=== PATIENT | female | born 1985 | race Caucasian/White ===

== ENCOUNTER 2018-12-19 10:45 | Outpatient (CLI) | payer BC | END 2018-12-19 10:46 | disposition home or self-care (01) | LOC: LABBT 10:45 | PROVIDERS: ATTEND Obstetrics & Gynecology | DX: Z01.812 Encounter for preprocedural laboratory examination (principal); O00.80 Other ectopic pregnancy without intrauterine pregnancy | CPT/HCPCS: 86850; 86900; 86901 ==

== ENCOUNTER 2018-12-20 10:05 | Day surgery (SDC) | payer BC ==
[2018-12-19 15:30] VITALS: BMI 32.5
[2018-12-20] MEDS ORDERED: Bupivacaine HCl 0.5%/Epinephrine 1:200,000/PF 30 ml Vial ONE (10:52)
[2018-12-20] MEDS ORDERED: Fentanyl 100 MCG/2 ML VIAL ONE ×2 (11:50→14:28)
[2018-12-20] MEDS ORDERED: Albuterol Sulfate HFA (OR ONLY) ONE (13:35)
[2018-12-20] MEDS ORDERED: Dexamethasone 20 MG/5 ML VIAL ONE (13:38)
[2018-12-20] MEDS ORDERED: diphenhydrAMINE 50 MG/ML VIAL ONE (13:38)
[2018-12-20] MEDS ORDERED: Lidocaine 1% PF 5 ML VIAL ONE (13:38)
[2018-12-20] MEDS ORDERED: Ketorolac Tromethamine 30 MG/ML VIAL ONE (13:38)
[2018-12-20] MEDS ORDERED: Glycopyrrolate 0.2 MG/ML 5 ML SYRINGE ONE (13:38)
[2018-12-20] MEDS ORDERED: PROPOFOL 200 MG/20 ML VIAL ONE (13:38)
[2018-12-20] MEDS ORDERED: Ondansetron PF 4 MG/2 ML Vial ONE (13:38)
[2018-12-20] MEDS ORDERED: Rocuronium Bromide 10 MG/ML (10ML VIAL) ONE (13:38)
[2018-12-20] MEDS ORDERED: PROVENTIL INHALER 6.7 G (200 INHALATIONS) ONE (13:38)
[2018-12-20] MEDS ORDERED: HYDROcodone/Acetaminophen 5/325 mg Tablet ONE (16:14)
--- NOTE | 2018-12-20 23:48 | OP ---
DATE OF PROCEDURE: 12/20/2018 PREOPERATIVE DIAGNOSIS: Left cornual ectopic , failed methotrexate therapy. POSTOPERATIVE DIAGNOSIS: Left cornual ectopic , failed methotrexate therapy. PROCEDURE PERFORMED: Robotic-assisted laparoscopic left cornual ectopic excision. SURGEON: Tabitha Hanley DO CENTRAL OFFICE MECHANIC: Love Lopez MD COMPLICATIONS: None. ESTIMATED BLOOD LOSS: 50 mL. IV FLUIDS: 600 mL. URINARY OUTPUT: 1000 mL INDICATIONS FOR PROCEDURE: Ms. Lore Rivas is a 33-year-old, G1, P0, who was diagnosed with an ectopic . She later had a sonogram that was suggestive of an interstitial or corneal ectopic . The patient underwent methotrexate therapy, which failed. She was then counseled and surgical treatment was recommended. The patient was appropriately consented and all questions were answered. FINDINGS: Normal-appearing external genitalia, normal vaginal and cervical epithelium, 8 cm uterus, normal-appearing bilateral ovaries and fallopian tubes. There is a left cornual ectopic probably 2 to 3 cm in size at the uterine cornua. DESCRIPTION OF PROCEDURE: The patient was brought to the operating room. She was placed under general anesthesia. The patient was placed in dorsal lithotomy position using Fran stirrups. She was prepped and draped in a sterile fashion. An official time-out was performed. She was given Ancef for surgical prophylaxis. A single-sided speculum was placed in the vagina. The anterior cervix was grasped using a single-tooth tenaculum, and a VCare manipulator was inserted into the uterus and appropriately secured. An umbilical incision was made using a scalpel. The Veress needle was inserted into the peritoneal cavity, noting a normal pressure. The peritoneal cavity was insufflated using carbon dioxide, and an 8-mm robotic trocar was then placed at the site. The patient was placed in Trendelenburg position. Press Secretary ports were also placed using two 8-mm ports and an additional 11-mm port. Ports were placed using local anesthesia and under direct visualization. The robot was then appropriately docked to the patient and instruments were inserted. The pelvic anatomy was evaluated noting the findings above. Dilute vasopressin was injected along the left cornual ectopic. A linear incision was made using monopolar device along the cornual ectopic. The tissue was bluntly and sharply transected and the ectopic was removed intact and placed in the anterior cul-de-sac for later removal. The bed of where the ectopic was located was coagulated multiple times and then the decidual-appearing tissue was removed. The area was irrigated and cleared of clot and debris. The cornu was sutured in a running fashion using 2-0 Stratafix suture creating hemostasis. The needle was removed. The ectopic was placed in an EndoCatch bag and also removed. The pelvis was irrigated and cleared of all clot and debris. The intraabdominal pressure was decreased and hemostasis was maintained. The instruments were then removed. The robot was undocked from the patient. The abdomen was deflated and the trocars were removed. All incision sites were closed using 4-0 Monocryl and Dermabond. There is a nevus just below the umbilicus, that the patient desired to have removal during her surgery, so this was then excised and this incision was closed using 4-0 Monocryl and Dermabond as well. This was also sent for pathology. The patient tolerated the procedure well. There were no complications. All counts were correct x2. Job ID: [id number] [facility]
--- NOTE | 2018-12-25 05:36 | PQF ---
[facility] POST DISCHARGE CLINICAL DOCUMENTATION IMPROVEMENT CLARIFICATION FORM l Todays Date: 12/25/18 l Patients Name CORAL ZIEGLER l l Admit Date 12/20/18 l Disch Date 12/20/18 Autism Teacher Name Princess Sirisha Neri Email: [email or web address] Cell: [phone] To be completed by Autism Teacher: Present Clinical Indicators - Signs / Symptoms Results and Location in Medical Record [ ] Documentation of: [ ] [ ] Documentation of: [ ] [ ] Documentation of: [ ] [ ] Documentation of: [ ] [ ] Risks [ ] [ ] [ ] Treatment [ ] Excision of umbilical nevus Query for size of excised nevus [ ] [ ] To be completed by Physician: Tabitha Doyle The documentation in this patients record requires clarification to ensure coding compliance and accuracy. Check the appropriate box and include in your discharge summary. [ ] [ ] [ ] [ ] Please check this box if this does not apply to this patient [ ] Unable to determine [ ] Other diagnosis: Review the following information and exercise your independent professional judgment in responding to the clarification. Based upon the clinical findings, risk factors, and treatment, please clarify if you are treating one of the above probable or suspected diagnoses. Physician Signature: Date Time MTDD
== END 2018-12-20 17:30 | disposition home or self-care (01) ==
LOC: SDC 10:05
PROVIDERS: ATTEND Obstetrics & Gynecology
PROC: 10T24ZZ Resection of Products of Conception, Ectopic, Percutaneous Endoscopic Approach (ICD-10-PCS; principal; 2018-12-20)
PROC: 0HB7XZZ Excision of Abdomen Skin, External Approach (ICD-10-PCS; principal; 2018-12-20)
DX: O00.80 Other ectopic pregnancy without intrauterine pregnancy (principal); D22.5 Melanocytic nevi of trunk; F32.9 Major depressive disorder, single episode, unspecified; Z79.899 Other long term (current) drug therapy
CPT/HCPCS: 88305; J0131; J0670; J1100; J1200; J1885; J2001; J2405; J2704; J3010; J7050; Q9968